=== PATIENT | male | born 1955 | race African-American/Black ===

== ENCOUNTER 2018-02-12 13:54 | Emergency (ER) | payer MEDICARE ==
[2018-02-12] MEDS ORDERED: Meclizine HCl 25 MG TAB ONE (14:46)
[2018-02-12 15:16] LABS: #Basophils 0.1 thou/uL (0.0-0.2); #Eosinphils 0.4 thou/uL (0.0-0.7); #Lymphocytes 1.4 thou/uL (1.20-3.40); #Monocytes 0.7 thou/uL (0.11-0.59); #Neutrophils 9.1 thou/uL (1.40-6.50); %Basophils 0.6 % (0.0-1.0); %Eosinophils 3.7 % (0.0-10.0); %Lymphocytes 11.7 % (21.0-51.0); Anisocytosis SLIGHT = 6-15 cells (100X) (0-5/hpf); Hemoglobin 11.9 g/dL (14.0-18.0); Hypochromia SLIGHT = 6-15 cells (100X) (0-5/hpf); MDiff Complete? YES; Mean Corpuscular Hemoglobin 21.1 pg (27.0-31.0); Mean Corpuscular Volume 72.7 fL (78.0-98.0); Mean Platelet Volume 6.9 fL (7.4-10.4); Microcytosis SLIGHT = 6-15 cells (100X) (0-5/hpf); PLT Morphology Comment Appears Adequate; Platelet Count 235 thou/uL (130-400); Red Blood Cell (RBC) Count 5.63 mill/uL (4.70-6.10); White Blood Cell (WBC) Count 11.7 thou/uL (4.8-10.8)
[2018-02-12 15:20] LABS: Anion Gap 13 mmol/L (10-20); BUN (Urea Nitrogen) 26 mg/dL (8.4-25.7); Calc. Creatinine Clearance 0 mL/min (70-130); Calcium 8.9 mg/dL (7.8-10.44); Carbon Dioxide 22 mmol/L (23-31); Chloride 109 mmol/L (98-107); Estimated GFR-MDRD 42; Glucose 100 mg/dL (80-115); Sodium 140 mmol/L (136-145)
--- NOTE | 2018-02-12 15:44 | CT ---
CT HEAD NONCONTRAST: HISTORY: Headache. Dizziness. FINDINGS: No comparison. There is no evidence of acute intracranial hemorrhage or infarct. Ventricles appear normal in size, shape, and position. There is no mass effect or shift of midline structures. Visuali zed paranasal sinuses remain well aerated. IMPRESSION: No acute intracranial abnormalities are demonstrated. POS: [facility]
== END 2018-02-12 16:25 | disposition home or self-care (01) ==
LOC: SCSER 13:54
DX: H81.10 Benign paroxysmal vertigo, unspecified ear (principal); D72.829 Elevated white blood cell count, unspecified; I10 Essential (primary) hypertension
CPT/HCPCS: 70450; 80048; 85025; 93005

== ENCOUNTER 2018-02-20 08:33 | Emergency (ER) | payer MEDICARE ==
[2018-02-20] MEDS ORDERED: predniSONE 20 MG TAB ONE (08:57)
--- NOTE | 2018-02-20 10:35 | RAD ---
LUMBAR SPINE RADIOGRAPH SERIES THREE VIEWS: INDICATIONS: Low back pain. FINDINGS: There is grade 1 spondylolisthesis at L4-L5. Multilevel moderate to severe degenerative change is pr esent throughout the lumbar spine. There is mild rightward convexity curvature, apex, at the L2-L3 r egion. There is a prominent bridging left lateral osteophyte of L2-L3. Incidental note of atheroscl erotic vascular calcification. IMPRESSION: Prominent degenerative changes at the lumbar spine. POS: [facility]
== END 2018-02-20 10:02 | disposition home or self-care (01) ==
LOC: SCSER 08:33
DX: M54.5 Low back pain (principal); M19.90 Unspecified osteoarthritis, unspecified site; M10.9 Gout, unspecified; I10 Essential (primary) hypertension
CPT/HCPCS: 72100; J7506

== ENCOUNTER 2018-04-24 17:22 | Outpatient (CLI) | payer MEDICARE ==
--- NOTE | 2018-04-24 19:41 | RAD ---
CHEST TWO VIEWS: 04/24/2018 PROVIDED CLINICAL HISTORY: Chronic cough. FINDINGS: The cardiac and mediastinal silhouette is within normal limits. Vascular calcification involves the aortic arch. No focal consolidation, pleural fluid, or pneumothorax apparent. IMPRESSION: No evidence for an acute cardiopulmonary process. POS: [facility]
== END 2018-04-24 17:23 | disposition home or self-care (01) ==
LOC: SCSRAD 17:22
PROVIDERS: ATTEND Family Medicine
DX: J41.1 Mucopurulent chronic bronchitis (principal)
CPT/HCPCS: 71046

== ENCOUNTER 2018-09-05 14:40 | Outpatient (CLI) | payer MEDICARE | END 2018-09-05 14:41 | disposition home or self-care (01) | LOC: BICMRI 14:40 | PROVIDERS: ATTEND Psychiatry & Neurology Neurology | DX: H46.9 Unspecified optic neuritis (principal) | CPT/HCPCS: 82565 ==

== ENCOUNTER 2018-09-16 07:42 | Outpatient (CLI) | payer MEDICARE ==
--- NOTE | 2018-09-16 09:09 | MRI ---
MRI BRAIN WITH AND ORBITS WITHOUT CONTRAST: DATE: 09/16/2018 HISTORY: 63-year-old male with "optic neuritis" Visual disturbance in the right eye, subsequently resolved. TECHNIQUE: Multiplanar, multisequence MRI of the whole brain, plus thin slice coronal and axials through the orb its, obtained pre and post IV injection of gadolinium based contrast agent. FINDINGS: Many of the images are degraded by patient motion. The ventricles are normal in size and configuratio n. There is no midline shift or any other evidence of mass effect. There is no extra-axial fluid collection. There is no intra-axial signal abnormality, abnormal enhancement, mass, recent hemorrhage , or restricted diffusion. No signal abnormality or abnormal enhancement involving optic nerves, optic pathways, or optic chiasm. No intraorbital mass or abnormal enhancement. Extraocular muscles ar e symmetrical and normal in size. No mass or asymmetry of cavernous sinuses or suprasellar cistern. IMPRESSION: Normal
[2018-09-16] MEDS ORDERED: Gadobenate Dimeglumine 529 MG/1 ML (20ML VIAL) ONE (11:10)
== END 2018-09-16 07:43 | disposition home or self-care (01) ==
LOC: MRI 07:42
PROVIDERS: ATTEND Psychiatry & Neurology Neurology
DX: H46.9 Unspecified optic neuritis (principal)
CPT/HCPCS: 70553; A9577

== ENCOUNTER 2023-05-11 10:55 | Emergency (ER) | payer MEDICARE ==
[2023-05-11] MEDS ORDERED: Ketorolac Tromethamine 30 MG (1 mL) VIAL ONE (12:41)
[2023-05-11] MEDS ORDERED: Dexamethasone 10 MG/ML VIAL ONE (12:41)
[2023-05-11] MEDS ORDERED: Diazepam 10 MG/2 ML SYRINGE ONE (12:50)
== END 2023-05-11 14:38 | disposition home or self-care (01) ==
LOC: ERS 10:55
DX: M54.41 Lumbago with sciatica, right side (principal); I10 Essential (primary) hypertension; M10.9 Gout, unspecified; Z79.899 Other long term (current) drug therapy
CPT/HCPCS: 96372; 99283; J1100; J1885; J3360